=== PATIENT | male | born 1985 | race Two or more races ===

== ENCOUNTER 2024-06-11 08:46 | Emergency (ER) | payer OTHER, SELFPAY ==
[2024-06-11 08:47] VITALS: BMI 28.7
[2024-06-11 08:55] VITALS: BP 127/77; PULSE 92; RESP 18; TEMP 36.8; O2SAT 96
--- NOTE | 2024-06-11 09:20 | EDNOTE_ITS ---
<Statement entered by Yasemin Cortez MD - 06/11/24 15:03> As co-signing physician, I was present and available for consult prn. I concur with the plan and care as documented by the midlevel provider. ED Eye Problem RME/HPI General Chief complaint: Eye Problems Stated complaint: BLOOD GOT IN PT'S R EYE; WORKER'S COMP Time Seen by Provider: 06/11/24 08:51 Arrival date/time: 06/11/24 08:46 38-year-old male who works in the [employer] presents to the emergency department today stating that he got some blood in his right eye. Limitations: no limitations Related Data Home Medications ?Medication ?Instructions ?Recorded ?Confirmed No Known Home Medications 01/27/1811/04 Allergies Allergy/AdvReac Type Severity Reaction Status Date / Time No Known Allergies Allergy Verified 06/11/24 08:48 Review of Systems Review of Systems Systems Reviewed: All systems reviewed, normal except as documented Constitutional Constitutional: Reports system reviewed and no additional complaints, except as documented, Denies fever(s) and Denies headache(s) Eyes Eyes: Reports system reviewed and no additional complaints, except as documented, Denies blurry vision, Denies change in vision, Denies dry eyes, Denies exophthalmos, Denies irritation, Denies itchy eyes and Reports other (Patient reports getting blood in his eye) ENT Ears, Nose, Mouth, and Throat: Reports system reviewed and no additional complaints, except as documented, Denies headache(s), Denies nasal congestion and Denies nasal discharge Cardiovascular Cardiovascular: Reports system reviewed and no additional complaints, except as documented, Denies chest pain and Denies dyspnea Respiratory Respiratory: Reports system reviewed and no additional complaints, except as documented, Denies chest congestion, Denies cough and Denies dyspnea Gastrointestinal Gastrointestinal: Reports system reviewed and no additional complaints, except as documented and Denies abdominal pain Integumentary/Breasts Skin/Breast: Reports system reviewed and no additional complaints, except as documented and Denies rash Neurologic Neurologic: Reports system reviewed and no additional complaints, except as documented, Reports as per HPI and Denies headache(s) Allergic/Immunologic Allergic/Immunologic: Denies itchy eyes Past Medical History Past Medical History NEUROLOGIC: Negative Neurological Disorders or Seizures CARDIAC: Negative Cardiac Disorders or Congestive Heart Failure RESPIRATORY: Positive Sleep Apnea; Negative Chronic Obstructive Pulmonary Disease (COPD) or Asthma GASTROINTESTINAL: Positive Gastrointestinal Disorders (UMBULICAL HERNIA) GENITOURINARY: Negative Genitourinary Disorders or Renal Disease MUSCULOSKELETAL: Negative Musculoskeletal Disorders ENDOCRINE: Negative Endocrine Disorders, Diabetes Mellitus Type 1 or Diabetes Mellitus Type 2 HEMATOLOGIC: Negative Blood Disorders or Sickle Cell Disease OTHER HISTORY: Negative Autoimmune Disease, Blood Transfusions, Blood Transfusion Reaction or Anesthesia Reactions Family History FAMILY HISTORY: Positive Family Gastrointestinal Problems (APPENDICITIS- BROTHER) and Family Surgery; Negative Family Psychiatric Problems, Family Respiratory Disorders, Family Cardiac Disorders, Family Cancer or Family Anesthesia Reaction Social History SMOKING STATUS: Never smoker ED Exam General Limitations: Present no limitations General appearance: Present alert and in no apparent distress Head Head exam: Present atraumatic, normocephalic and normal inspection Eye Eye exam: Present normal appearance, PERRL and EOMI; Absent scleral icterus, conjunctival injection, nystagmus, miosis, mydriasis, periorbital swelling or periorbital tenderness ENT ENT exam: Present normal exam, normal oropharynx and mucous membranes moist Neck Neck exam: Present normal inspection, full ROM and trachea midline Chest Chest inspection: Present normal inspection and symmetric chest wall rise Respiratory Respiratory exam: Present normal lung sounds bilaterally Cardiovascular Cardiovascular exam: Present regular rate, normal rhythm and normal heart sounds Abdominal Exam Abdominal exam: Present soft and normal bowel sounds Extremities Exam Extremities exam: Present normal inspection and full ROM Back Exam Back exam: Present normal inspection and full ROM Neurological Exam Neurological exam: Present alert, oriented X3 and CN II-XII intact Psychiatric Psychiatric exam: Present normal affect and normal mood Skin Skin exam: Present warm, dry, intact and normal color Course Quality Measures none Orders Category Date Time Status HIV (1&2) Antibody Rapid Stat Lab 06/11/24 09:23 Received Hepatitis B Surface Ab Stat Lab 06/11/24 09:23 Completed Hepatitis C Antibody Stat Lab 06/11/24 09:23 Completed Vital Signs Vital signs: Vital Signs Temperature 98.2 F 06/11/24 08:55 Pulse Rate 92 06/11/24 08:55 Respiratory Rate 18 06/11/24 08:55 Blood Pressure 127/77 06/11/24 08:55 Pulse Oximetry (%) 96 06/11/24 08:55 Oxygen Delivery Method Room Air 06/11/24 08:55 O2 saturation 96% on room air within normal limits Eye MDM Narrative MDM Narrative:: 38-year-old male who works in the [employer] presents to the emergency department today stating that he got some blood in his right eye. On exam patient well-appearing patient does not appear ill or toxic Workmen's Compensation papers completed Discussed possible HIV prophylaxis patient declined Patient discharged home in no distress to follow-up with primary care doctor in the next 24 to 48 hours and for any worsening symptoms to return to the ER immediately Patient data External records reviewed:: [facility] [place] previous records Clinical information provided by:: patient Social determinants that could affect healthcare access:: none Patient has the following chronic illnesses:: None How is presenting disease/condition affected by chronic disease/condition?: no chronic disease Evaluation data The following diagnostics were reviewed and interpreted by me:: lab results Lab and/or radiology exams considered but not ordered:: Baseline labs obtained Interpretation Summary: Reviewed by me Medications / Prescriptions Medications or Prescriptions considered but not ordered:: No meds Medication administrations:: No meds Consultations Consultation(s) initiated? (list below): No Diagnosis Eye Problem Differential Diagnosis: corneal abrasion, conjunctivitis and other (Blood splatter right eye) Most likely diagnosis given after review of the tests above:: Blood splatter Admission Indicated Admission indicated?: not indicated Admission Request Was there a request for admission?: No Disposition Plan Disposition Plan: Discharge Discharge Attestation Discharge Attestation: The patient and all family members were given an opportunity to ask questions and understood the discharge instructions. Discharge instructions specifically effects, indications for sooner follow up or return to the emergency department, and the expected course of current diagnosis. Patient condition: Stable Discharge Plan Plan Patient Disposition: HOME (Self Care) Disposition Comment: Stable Prescriptions/Referrals Prescriptions/Med Rec: No Action No Known Home Medications Referrals: Rubio Swan MD [Primary Care Provider] - In 1 week Problem List Clinical Impression: Exposure to blood or body fluid, Work related injury Patient/Caregiver Discharge Instructions Additional Instructions: Please follow up with your primary care doctor in the next 24-48hrs for any worsening symptoms return here immediately Print Language: Kazakh Stand Alone Forms: Davina Award Info., Patient Portal Info Letter PA/RACING MANAGER Supervising Physician PA/RACING MANAGER Supervising Physician: Dr. cortez
[2024-06-11 10:37] LABS: Hepatitis B Surface Ab Reactive (Immune) (Immune); Hepatitis C Antibody Non Reactive (Non React)
[2024-06-11 13:13] LABS: HIV (1&2) Antibody Rapid Non-Reactive
== END 2024-06-11 09:30 | disposition home or self-care (01) ==
PROVIDERS: Nurse Practitioner Primary Care; Emergency Provider Emergency Medicine; PCP Family Medicine
DX: Z77.21 Contact with and (suspected) exposure to potentially hazardous body fluids (principal); Y99.0 Civilian activity done for income or pay
CPT/HCPCS: 36415; 86703; 86706; 86803; 99283